=== PATIENT | male | born 1955 | race Caucasian/White ===

== ENCOUNTER 2021-06-09 12:30 | Outpatient (CLI) | payer MEDICARE, MEDICAID | END 2021-06-09 12:31 | disposition home or self-care (01) | LOC: PET 12:30 | PROVIDERS: ATTEND Internal Medicine Hematology & Oncology | DX: C34.32 Malignant neoplasm of lower lobe, left bronchus or lung (principal); J18.1 Lobar pneumonia, unspecified organism | CPT/HCPCS: 78815; A9552 ==

== ENCOUNTER 2021-07-08 10:33 | Outpatient (CLI) | payer MEDICARE, OTHER ==
[~2021-07-08 10:33] MED LIST: Iopamidol-370 76% 500 ML 1 ML ONE
== END 2021-07-08 10:34 | disposition home or self-care (01) ==
LOC: CT 10:33
PROVIDERS: ATTEND Internal Medicine Hematology & Oncology
DX: C34.32 Malignant neoplasm of lower lobe, left bronchus or lung (principal); R06.02 Shortness of breath; R09.02 Hypoxemia; R91.8 Other nonspecific abnormal finding of lung field; J18.1 Lobar pneumonia, unspecified organism
CPT/HCPCS: 71275

== ENCOUNTER 2021-09-18 14:31 | Outpatient (CLI) | payer OTHER ==
[2021-09-18 15:03] LABS: Estimated GFR-MDRD - POC Greater than 90
== END 2021-09-18 14:32 | disposition home or self-care (01) ==
LOC: BICCT 14:31
PROVIDERS: ATTEND Internal Medicine Hematology & Oncology
DX: C34.32 Malignant neoplasm of lower lobe, left bronchus or lung (principal); R91.8 Other nonspecific abnormal finding of lung field; R59.0 Localized enlarged lymph nodes; R16.1 Splenomegaly, not elsewhere classified
CPT/HCPCS: 71260; 82565

== ENCOUNTER 2021-12-10 08:58 | Outpatient (CLI) | payer OTHER ==
[2021-12-10] MEDS ORDERED: Iopamidol 370 76% 100 ML VIAL ONE (15:57)
== END 2021-12-10 08:59 | disposition home or self-care (01) ==
LOC: CT 08:58
PROVIDERS: ATTEND Internal Medicine Hematology & Oncology
DX: C34.32 Malignant neoplasm of lower lobe, left bronchus or lung (principal); Z98.890 Other specified postprocedural states
CPT/HCPCS: 71260; Q9967

== ENCOUNTER 2022-04-06 09:03 | Outpatient (CLI) | payer OTHER | END 2022-04-06 09:04 | disposition home or self-care (01) | LOC: BICCT 09:03 | PROVIDERS: ATTEND Internal Medicine Hematology & Oncology | DX: C34.32 Malignant neoplasm of lower lobe, left bronchus or lung (principal); J43.2 Centrilobular emphysema; J98.09 Other diseases of bronchus, not elsewhere classified; M47.812 Spondylosis without myelopathy or radiculopathy, cervical region; Z95.828 Presence of other vascular implants and grafts | CPT/HCPCS: 71260; 82565 ==

== ENCOUNTER 2022-07-02 09:57 | Outpatient (CLI) | payer OTHER ==
[2022-07-02] MEDS ORDERED: Iopamidol-370 76% 500 ML 1 ML ONE (13:53)
== END 2022-07-02 09:58 | disposition home or self-care (01) ==
LOC: BICCT 09:57
PROVIDERS: ATTEND Internal Medicine Hematology & Oncology
DX: C34.32 Malignant neoplasm of lower lobe, left bronchus or lung (principal); J98.11 Atelectasis; J47.9 Bronchiectasis, uncomplicated
CPT/HCPCS: 71260; 82565; Q9967

== ENCOUNTER 2022-09-27 14:09 | Outpatient (CLI) | payer OTHER ==
[~2022-09-27 14:09] MED LIST changes: +Iopamidol 370 76% 100 ML VIAL ONE; -Iopamidol-370 76% 500 ML 1 ML ONE
== END 2022-09-27 14:10 | disposition home or self-care (01) ==
LOC: CT 14:09
PROVIDERS: ATTEND Internal Medicine Hematology & Oncology
DX: C34.92 Malignant neoplasm of unspecified part of left bronchus or lung (principal)
CPT/HCPCS: 71260; 82565; Q9967

== ENCOUNTER 2022-12-21 10:50 | Outpatient (CLI) | payer OTHER ==
[2022-12-21] MEDS ORDERED: Iopamidol-370 76% 500 ML MDV (1 ML CHARGE) ONE (11:00)
== END 2022-12-21 10:51 | disposition home or self-care (01) ==
LOC: BICCT 10:50
PROVIDERS: ATTEND Internal Medicine Hematology & Oncology
DX: C34.32 Malignant neoplasm of lower lobe, left bronchus or lung (principal)
CPT/HCPCS: 71260; Q9967

== ENCOUNTER 2023-03-28 12:17 | Outpatient (CLI) | payer OTHER | END 2023-03-28 12:18 | disposition home or self-care (01) | LOC: CT 12:17 | PROVIDERS: ATTEND Internal Medicine Hematology & Oncology | DX: C34.32 Malignant neoplasm of lower lobe, left bronchus or lung (principal) | CPT/HCPCS: 71260; 82565 ==

== ENCOUNTER 2023-06-20 12:33 | Outpatient (CLI) | payer OTHER, MEDICAID | END 2023-06-20 12:34 | disposition home or self-care (01) | LOC: BICCT 12:33 | PROVIDERS: ATTEND Internal Medicine Hematology & Oncology | DX: C34.32 Malignant neoplasm of lower lobe, left bronchus or lung (principal); R91.8 Other nonspecific abnormal finding of lung field | CPT/HCPCS: 71260; 82565; Q9967 ==

== ENCOUNTER 2023-12-06 08:55 | Outpatient (CLI) | payer OTHER, MEDICAID ==
[2023-12-06] MEDS ORDERED: Iopamidol 370 76% 100 ML VIAL ONE (15:10)
== END 2023-12-06 08:56 | disposition home or self-care (01) ==
LOC: CT 08:55
PROVIDERS: ATTEND Internal Medicine Hematology & Oncology
DX: C34.32 Malignant neoplasm of lower lobe, left bronchus or lung (principal); J18.1 Lobar pneumonia, unspecified organism
CPT/HCPCS: 71260; Q9967

== ENCOUNTER 2024-03-07 12:27 | Outpatient (CLI) | payer OTHER, MEDICAID ==
[2024-03-07] MEDS ORDERED: Iopamidol 30 ML ONE (13:00)
== END 2024-03-07 12:28 | disposition home or self-care (01) ==
LOC: RAD 12:27
PROVIDERS: ATTEND Internal Medicine Hematology & Oncology
DX: Z45.2 Encounter for adjustment and management of vascular access device (principal); T82.848A Pain due to vascular prosthetic devices, implants and grafts, initial encounter
CPT/HCPCS: 36598; J1642; Q9967; 36415; 80053; 84439; 84443

== ENCOUNTER 2024-03-21 08:45 | Outpatient (CLI) | payer OTHER, MEDICAID | END 2024-03-21 08:46 | disposition home or self-care (01) | LOC: PET 08:45 | PROVIDERS: ATTEND Internal Medicine Hematology & Oncology | DX: C34.32 Malignant neoplasm of lower lobe, left bronchus or lung (principal); R91.1 Solitary pulmonary nodule; J98.4 Other disorders of lung | CPT/HCPCS: 78815; A9552 ==

== ENCOUNTER 2025-03-19 12:56 | Outpatient (CLI) | payer OTHER ==
[2025-03-19 13:22] LABS: Estimated GFR - POC 95.0
== END 2025-03-19 12:57 | disposition home or self-care (01) ==
LOC: CT 12:56
PROVIDERS: ATTEND Internal Medicine Hematology & Oncology
DX: C34.32 Malignant neoplasm of lower lobe, left bronchus or lung (principal); J43.9 Emphysema, unspecified; I77.810 Thoracic aortic ectasia; I70.0 Atherosclerosis of aorta; J47.9 Bronchiectasis, uncomplicated; J18.1 Lobar pneumonia, unspecified organism; J98.4 Other disorders of lung; R91.8 Other nonspecific abnormal finding of lung field; E04.1 Nontoxic single thyroid nodule
CPT/HCPCS: 36415; 71260; 82565